=== PATIENT | female | born 1990 | race Caucasian/White ===

== ENCOUNTER 2019-08-12 10:15 | Inpatient (IN) ==
[~2019-08-12 10:15] MED LIST: OXYTOCIN 20 UNITS in RINGER'S SOLUTION,LACTATED 1,000 ML IV ONE; RINGER'S SOLUTION,LACTATED 1,000 ML IV PRN; ceFAZolin SODIUM/DEXTROSE,ISO 2 GM/50 ML BAG IV ONE
[2019-08-12 10:44] LABS: Hematocrit 37.3 % (37.0-47.0); Hemoglobin 13.2 gm/dL (12.5-16.0); Mean Cell Volume 95.4 fl (78-100); Mean Corpuscular Hemoglobin 33.8 pg (27-31); Mean Corpuscular Hgb Conc 35.4 g/dl (32-36); Neutrophil # 7.4 K/mm3 (1.3-6.0); Neutrophil % 72.4 % (42-75.0); Platelet Count 180 K/mm3 (150-450); Red Blood Count 3.91 M/mm3 (4.2-5.4); Red Cell Distribution Width 13.6 % (11.5-14.0); White Blood Count 10.2 K/mm3 (4.0-10.5)
--- NOTE | 2019-08-12 10:53 | ANES ---
Anesthesia Pre Procedure Eval Vitals/Labs: Last Vital Signs Temp 36.4 C 08/12/19 10:33 Pulse 70 08/12/19 10:33 Resp 18 08/12/19 10:33 BP 133/75 08/12/19 10:33 Pulse Ox 99 08/12/19 10:33 HOME MEDICATIONS Acetaminophen [Tylenol] 1,000 mg PO PRN PRN 07/19/19 [Last Taken 08/05/19] Calcium Carbonate [Tums] 300 mg PO [id number] PRN 07/19/19 [Last Taken Unknown] Vits96/Iron Fum/Folic [ S] 1 tab PO DAILY 07/19/19 [Last Taken 08/11/19] Allergies/Adverse Reactions: Allergies Allergy/AdvReac Type Severity Reaction Status Date / Time latex Allergy Intermediate Hives Verified 08/12/19 09:26 lamotrigine Allergy RASH Verified 08/12/19 09:26 - Planned Procedure Planned Procedure: Repeat ,Bilat Salpingectmy,Poss scar rev Medication List Reviewed:: Yes Allergies Verified: Yes Medical History (Updated 08/01/19 @ 16:13 by Charlee Gar NP) Generalized anxiety disorder (Chronic) History of recurrent spontaneous , not currently (Chronic) Tobacco abuse (Chronic) Substance abuse complicating , 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 No recent neurologist visits. History of delivery (Chronic) Bipolar disorder in partial remission (Acute) Anxiety disorder (Chronic) Bipolar disorder, current episode mixed, moderate (Chronic) Hx of migraines Restless leg syndrome Onset Date: 03/04/19 Wears glasses Anxiety Depression Epilepsy 10/2018 was last seizure- no current medication Insomnia Seizure , spontaneous x6 per pt Ankle fracture Gonorrhea Onset Date: ~2013 Placental abruption Onset Date: 11/08/14 partial at 36 wks delivery at 36wks d/t partial placental abruption Abnormal Pap smear of cervix Onset Date: ~2006 patient states she had pre-cancerous cells, Surgical History (Updated 07/15/19 @ 17:51 by Carson Terry DO) Previous section (Chronic) Ankle fracture History of colposcopy Onset Date: ~2006 S/P surgical manipulation of ankle joint delivery delivered Onset Date: 11/08/14 11/08/14- partial placental abruption Family History (Updated 12/31/18 @ 11:20 by Kaleigh Espinoza LPN) Mother Hypertension CVA (cerebral vascular accident) Anxiety Depression Other Adopted - Family Anesthesia History Family History:: no untoward family reactions to anesthesia, no familial bleeding tendencies, no family history of clotting disorders, no family history of premature - Airway/Neck/Teeth Within Normal Limits:: Yes Teeth Condition: intact Neck Exam: full range of motion Mallampatti Score: 2 Thyromental (T-M) distance: > 6 cm - Respiratory Respiratory Physical: rhonchi, wheezing Smoking Status: Former smoker - quit 2 months Sleep Apnea currently treated: No Sleep Apnea by current assessment: No - Cardiovascular Tolerate Activity: Fair Heart Sounds: S1 & S2, Regular - Anesthesia Assessment and Plan ASA Class: PS, II, E Anesthesia Type Plan: Block - TAP bilaterally for post op pain relief, Spinal
[2019-08-12] MEDS ORDERED: SENNOSIDES 8.6 MG TABLET PO PRN (12:51)
[2019-08-12] MEDS ORDERED: SIMETHICONE 80 MG TAB.CHEW PO PRN (12:51)
[2019-08-12] MEDS ORDERED: ONDANSETRON HCL/PF 2 MG/ML VIAL IV PRN (12:51)
[2019-08-12] MEDS ORDERED: BISACODYL 10 MG SUPP.RECT RC PRN (12:51)
[2019-08-12] MEDS ORDERED: IBUPROFEN 800 MG TABLET PO PRN (12:51)
--- NOTE | 2019-08-12 13:00 | ANES ---
Post Anesthesia Discharge - Transfer of Care Transfer of Care handoff given to nurse: Yes - Discharge from PACU Discharge from PACU when meets criteria: Yes - Alert and comfortable.
--- NOTE | 2019-08-12 13:07 | OR ---
Operative Report - Dictated Report Narrative: Indication: 28-year-old 2 para 1 at 38 6/7 weeks with prior section presents to office for routine visit was noted to have a 2-minute deceleration down to the 60s during a routine nonstress testing. Desires sterilization via bilateral salpingectomy. status: Planned Pre Operative Diagnosis: 38 6/7-week intrauterine . Prior section. Nonreassuring status. Post Operative Diagnosis: Same. Omental adhesions. Procedure: Repeat low transverse section. Abdominal scar revision - 16cm.\Bilateral salpingectomy. Lysis of omental adhesions Surgeon: Niranjan Terry DO Credit Rating Checker: OR Staff Anesthesia: Spinal, TAP block Estimated Blood Loss: 300 mL Urine Output: 200 mL clear urine Fluids Replacement: 1600 mL of crystalloid Drains: Woodruff to gravity Surgical Complications: None Specimens: Placenta to pathology Findings: Female born at 1130 on 08/12/2021 in cephalic presentation with Apgars 8 and 9, weighing 2882 g. Normal uterus, tubes, ovaries. Omental adhesions noted to the anterior abdominal wall and bladder. Technique: The patient was taken to the operating room and placed in dorsal supine position with a left lateral tilt. After adequate spinal anesthesia, woodruff catheter inserted, SCDs placed, and 2 g of Ancef given preoperatively, the previous scar was excised in an elliptical fashion and the abdominal cavity was entered using sharp and blunt dissection. Omental adhesions were taken down from the anterior abdominal wall and upper portion of the bladder with cautery to allow access to the uterus. Two rolled laps were placed in the pericolic gutters on either side of the uterus. A transverse incision was made in the lower uterine segment and extended laterally and upwardly with digital traction. Clear fluid was noted upon amniotomy. The infant was delivered easily. The cord was clamped and cut and infant was handed off to awaiting senior product integrity engineer. The placenta was allowed to deliver spontaneously. The uterus was cleared of clot and debris. Uterine incision was closed with 0 Vicryl using a running stitch. A second imbricating layer was placed. Excellent hemostasis was noted. The rolled laps were removed from the abdominal cavitiy. Attention was turned to the right fallopian tube which was identified and followed out to the fimbriated end. The mesosalpinx was coagulated with bipolar graspers and transected with Metzenbaum scissors. The fallopian tube was coagulated and transected approximately 2 cm from the cornual region. The exact same thing was done on the patient's left side. Excellent hemostasis was noted. The peritoneum was closed with a running 3-0 Monocryl. The same suture was used to approximate the rectus and pyramidalis muscles. The fascia was closed with a running 0 Vicryl. The subcutaneous layer was approximated in 4 places with 3-0 Vicryl interrupted sutures then closed with a running 3-0 Monocryl. 4 interrupted sutures of 3-0 Vicryl were placed in the subdermal layer and a running 3-0 Monocryl was used to approximate the subdermal layer. The skin was closed with a running 4-0 Monocryl, 2 interrupted sutures, and Dermabond. Sponge, lap, needle, and instrument count were correct x 2. Disposition: To post anesthesia care unit in good condition History for MU History for MU Definition: * The number of deliveries resulting in a live the patient experienced prior to current hospitalization * The previous delivery of live twins or any live multiple gestation is considered one live event. *If primagravida or nulliparous is documented select zero for the number of previous live births. Live Events: Live Events: 1
--- NOTE | 2019-08-12 13:07 | ANES ---
Anesthesia Procedure Note Procedure Note: ANESTHESIA PROCEDURE NOTE Date of Procedure: [08/12/2019 Time of procedure: 1105. Performed by: PAWAN Carrillo CRNA, MSN Machine Container Washer: Jolanta Magaña RN. Preprocedure diagnosis: Post section pain. Post procedure diagnosis: Same. Procedure: Bilateral TAP block Indications: Post section pain relief. Findings: See below. Details of the procedure: The patient was brought to PACU and placed in the supine position. The patient was prepped with chlorhexidine. Since the ultrasound machine was not available, and the patient was of a reasonable habitus to approach with a tactile technique, internal oblique and transverses abdominis muscle layers were approached using a 4 inch block needle until the tip of the needle rested in the fascial plane between the internal oblique and transversus abdominis muscles as evidenced by the tactile sensation of the second pop of a fascial plane. 25 mL bupivacaine 0.5% with 1-200,000 epinephrine was injected and the procedure was repeated on the other side. EBL: 0 Fluids: N/A. Specimen: N/A. Post procedure condition: The patient tolerated the procedure well. No complications were noted. Thank you for this consultation. Tristan Roque CRNA, ARNP, MSN
--- NOTE | 2019-08-12 13:14 | ANES ---
Post Anesthesia Assessment - Vital Signs Vitals: Last Vital Signs Temp 36.0 C 08/12/19 12:59 Pulse 85 08/12/19 12:59 Resp 20 08/12/19 12:59 BP 128/59 08/12/19 12:59 Pulse Ox 100 08/12/19 12:59 Airway Patency: Normal - Mental Status Level Of Consciousness: Awake, Alert, Appropriate - Pain Level Pain Score: 0 - N/V Assessment Nausea/Vomiting Presence: None Dehydration:: No
[2019-08-12] MEDS: oxyCODONE HCL/ACETAMINOPHEN 1 TAB TABLET PO PRN ×4 (13:24→22:52)
[2019-08-12] MEDS: IBUPROFEN 800 MG TABLET PO PRN ×2 (13:24→19:32)
[2019-08-12] MEDS: ENOXAPARIN SODIUM 40 MG/0.4 ML SYRG SC SCH (19:33)
[2019-08-12] MEDS: DOCUSATE SODIUM 100 MG CAPSULE PO SCH (21:47)
[2019-08-13] MEDS: IBUPROFEN 800 MG TABLET PO PRN ×4 (01:38→21:26)
[2019-08-13] MEDS: oxyCODONE HCL/ACETAMINOPHEN 1 TAB TABLET PO PRN ×7 (01:52→23:40)
[2019-08-13] MEDS: DOCUSATE SODIUM 100 MG CAPSULE PO SCH ×3 (08:02→22:37)
--- NOTE | 2019-08-13 09:27 | PN ---
Subjective - Date and Time Seen Date: 08/13/19 Time: : Objective - Vitals Vitals: Last Vital Signs Temp 36.8 C 08/13/19 08:33 Pulse 90 08/13/19 08:33 Resp 16 08/13/19 08:33 BP 138/81 08/13/19 08:33 Pulse Ox 97 08/13/19 08:33 Patient denies complaints. Tolerating regular diet. Ambulating without difficulty. Pain well controlled. Lochia wnl. Abdomen - soft, appropriately tender Incision -clean, dry, intact uterus - firm, at umbilicus -1 no calf tenderness Impression: Post op day #1 s/p repeat section. Bilateral salpingectomy. Lysis of omental adhesions. Abdominal scar revision. Plan: Continue routine post-operative/ care - Abnormal Lab Findings Abnormal Lab Findings: Abnormal Lab Results 08/12/19 Range/Units 10:34 RBC 3.91 L (4.2-5.4) M/mm3 MCH 33.8 H (27-31) pg Immature Gran % (Auto) 0.50 H (0.001-0.429) % Immature Gran # (Auto) 0.05 H (0.000-0.0310) K/mm3 Lymphocytes % 19.9 L (20-51) % Neutrophils # 7.4 H (1.3-6.0) K/mm3 Cauti Physician Documentation - Urinary Catheter Management Urethral ([place]) Date of Insertion: 08/12/19 Time of Insertion: 11:31
[2019-08-13] MEDS: ENOXAPARIN SODIUM 40 MG/0.4 ML SYRG SC SCH (22:37)
[2019-08-13] MEDS: BENZOCAINE/MENTHOL 16 EACH BOX MM PRN (22:40)
[2019-08-14] MEDS: oxyCODONE HCL/ACETAMINOPHEN 1 TAB TABLET PO PRN ×6 (03:07→20:53)
[2019-08-14] MEDS: BENZOCAINE/MENTHOL 16 EACH BOX MM PRN ×2 (03:13→07:28)
[2019-08-14] MEDS: IBUPROFEN 800 MG TABLET PO PRN ×3 (05:54→20:53)
[2019-08-14] MEDS: DOCUSATE SODIUM 100 MG CAPSULE PO SCH ×3 (07:27→20:05)
--- NOTE | 2019-08-14 09:49 | PN ---
Subjective - Date and Time Seen Date: 08/14/19 Time: 09:47 Objective - Vitals Vitals: Last Vital Signs Temp 36.7 C 08/13/19 23:35 Pulse 74 08/13/19 23:35 Resp 18 08/13/19 23:35 BP 130/76 08/13/19 23:35 Pulse Ox 94 08/13/19 23:35 Patient denies complaints. Ambulating well. Tolerating regular diet. Pain well controlled. Lochia wnl. Abdomen - soft, appropriately tender Incision -clean, dry, intact uterus - firm, at umbilicus -2 no calf tenderness Impression: Post op day #2 s/p repeat section. Plan: Continue routine post-operative/ care Cauti Physician Documentation - Urinary Catheter Management Urethral ([place]) Date of Insertion: 08/12/19 Time of Insertion: 11:31
[2019-08-14] MEDS: ENOXAPARIN SODIUM 40 MG/0.4 ML SYRG SC SCH (20:05)
[2019-08-15] MEDS: oxyCODONE HCL/ACETAMINOPHEN 1 TAB TABLET PO PRN ×4 (00:03→10:21)
[2019-08-15] MEDS: IBUPROFEN 800 MG TABLET PO PRN ×2 (03:43→10:21)
[2019-08-15] MEDS: DOCUSATE SODIUM 100 MG CAPSULE PO SCH ×2 (07:11→11:12)
[2019-08-15 07:31] VITALS: BP 115/85
--- NOTE | 2019-08-15 09:19 | PN ---
Subjective - Date and Time Seen Date: 08/15/19 Time: 09:18 Objective - Vitals Vitals: Last Vital Signs Temp 36.9 C 08/15/19 07:00 Pulse 60 08/15/19 07:00 Resp 14 08/15/19 07:00 BP 115/85 08/15/19 07:00 Pulse Ox 97 08/15/19 07:00 Patient denies complaints. Ambulating without difficulty. Tolerating regular diet. Pain well controlled. Lochia wnl. Abdomen - soft, appropriately tender Incision -clean, dry, intact uterus - firm, at umbilicus -3 no calf tenderness Impression: Post op day #3 s/p repeat section. Bilateral salpingectomy. Abdominal scar revision. Plan: Routine discharge instructions Cauti Physician Documentation - Urinary Catheter Management Urethral ([place]) Date of Insertion: 08/12/19 Time of Insertion: 11:31
== END 2019-08-15 11:05 | disposition home or self-care (01) | DRG 784 ==
LOC: MS 10:15
PROVIDERS: ADMIT Obstetrics & Gynecology; ATTEND Obstetrics & Gynecology
CPT/HCPCS: 36415; 59025; 80307; 85025; 88302; 88307